=== PATIENT | female | born 1965 | race Caucasian/White ===

== ENCOUNTER 2019-04-25 12:57 | Emergency (ER) | payer OTHER, SELFPAY ==
[2019-04-25 12:59] VITALS: BP 157/103; PULSE 99; RESP 16; TEMP 37.2; O2SAT 97
--- NOTE | 2019-04-25 13:04 | ED.FEMALEGU ---
HPI - Female Genitourinary General Chief complaint: Urogenital-Female Stated complaint: UTI SYMPTOMS Time Seen by Provider: 04/25/19 13:04 Source: patient and RN notes reviewed History of Present Illness HPI Narrative: Patient is 53-year-old female that presents the urgent care with complaints of UTI symptoms since Tuesday. Patient states that she has had suprapubic pressure, burning with urination, chills. Patient denies any known fever, nausea, vomiting. Denies any known blood in the urine or lower back pain. Patient does not have chronic recurrent UTIs but has had them in the past. No other acute complaints. No acute distress noted. Patient read the plan of care. Related Data Allergies Allergy/AdvReac Type Severity Reaction Status Date / Time NKDA Allergy Mild Uncoded 02/17/10 18:12 Review of Systems Review of Systems: Narrative: CONSTITUTIONAL: Denies fever, chills, or sweats. EYES: Denies visual changes, redness, or discharge. ENT: Denies rhinorrhea, congestion, sore throat, or otalgia. CARDIOVASCULAR: Denies chest pain, palpitations, or edema. RESPIRATORY: Denies cough or dyspnea. GASTROINTESTINAL: Reports of suprapubic pressure GENITOURINARY: Reports of dysuria, urgency, frequency SKIN: Denies rash or itching. MUSCULOSKELETAL: Denies back pain, joint pain, or myalgia. NEUROLOGIC: Denies headache, numbness, or weakness. All other systems reviewed are negative, except as documented in HPI. PMFSH Comments At the time of my signature, I reviewed and agree with the nursing past medical, surgical, social, and family history. There is no relevant family history pertinent to the patient complaint. Exam Narrative: Exam Narrative: GENERAL: This is a well-nourished, well-developed patient, in no apparent distress. HEAD: normocephalic, atraumatic. EYES: PERRL. Sclera clear/white. Vision is grossly intact. EARS: External ears normal NOSE: External nose normal with no obvious nasal discharge THROAT: Mucous membranes moist NECK: Neck supple CARDIOVASCULAR: Regular rate and rhythm without murmurs, gallops, or rubs. RESPIRATORY: Clear to auscultation. Breath sounds equal bilaterally. No wheezes, rales, or rhonchi. GASTROINTESTINAL: Abdomen soft, mild suprapubic tenderness, nondistended. Bowel sounds are active. SKIN: warm, intact with no suspicious lesions or rash, good texture and turgor. NEURO: awake, alert, and oriented to person, place and time. There were no obvious focal neurologic abnormalities. EXTREMITIES: No clubbing, cyanosis, or edema. BACK: Negative bilateral CVA tenderness Course Vital Signs Vital signs: Vital Signs Temperature 98.9 F 04/25/19 12:59 Pulse Rate 99 04/25/19 12:59 Respiratory Rate 16 04/25/19 12:59 Blood Pressure 157/103 H 04/25/19 12:59 Pulse Oximetry 97 04/25/19 12:59 Temperature 98.9 F 04/25/19 12:59 Pulse Rate 99 04/25/19 12:59 Respiratory Rate 16 04/25/19 12:59 Blood Pressure 157/103 H 04/25/19 12:59 Pulse Oximetry 97 04/25/19 12:59 Reviewed?patient is informed that they may have pre-hypertension or hypertension based on a blood pressure reading in the department. I recommend the patient call the primary care provider listed on their discharge instructions or a physician of their choice this week to arrange follow-up for further evaluation of possible pre-hypertension or hypertension. MDM - Female Genitourinary MDM Narrative Medical decision making narrative: Reviewed lab results with the patient. She is aware that her urine analysis reveals positive UTI. There is also blood in the urine. Advised the patient to complete antibiotic regimen as prescribed. We will culture the urine and call if medication needs to be changed or stopped based on culture results. Make sure to eat and drink with the medication. Use Pyridium as needed for bladder spasms. Increase water intake and avoid sugary and caffeinated drinks. If you develop any increase in symptoms asso
== END 2019-04-25 13:35 | disposition home or self-care (01) ==
PROVIDERS: Emergency Provider Nurse Practitioner Family; PCP Internal Medicine
DX: N39.0 Urinary tract infection, site not specified (principal)
CPT/HCPCS: 81003; 87077; 87086; 87088; 87186; 99203; G0463

== ENCOUNTER 2021-07-18 14:14 | Emergency (ER) | payer OTHER, SELFPAY ==
[2021-07-18 14:25] VITALS: BP 163/84; PULSE 78; RESP 20; TEMP 36.8; O2SAT 98
--- NOTE | 2021-07-18 15:20 | ED.FEMALEGU ---
HPI - Female Genitourinary General Chief complaint: Urogenital-Female Stated complaint: Urinary Problem Time Seen by Provider: 07/18/21 14:50 Source: patient, RN notes reviewed and old records reviewed Mode of arrival: ambulatory Limitations: no limitations History of Present Illness HPI Narrative: 56-year-old female presents to [facility] with complaints of some urinary pressure yesterday and slight burning. Patient started Macrobid on July 05 for urinary tract infection and completed all doses of medication. Patient states that her symptoms improved after being treated before but never felt went away completely. Patient denies any fevers,chills or sweats, denies any nausea or vomiting or any back pain.Patient denies any visible blood in her urine. MD elicited complaint: dysuria Onset (ago): day(s) (2) Location of symptoms: perineum (pressure) Related Data Home Medications Medication Instructions Recorded Confirmed amlodipine 07/18/21 losartan-hydrochlorothiazide tablet 07/18/21 07/18/21 semaglutide [Rybelsus] mg PO 07/18/21 Allergies Allergy/AdvReac Type Severity Reaction Status Date / Time No Known Allergies Allergy Verified 07/18/21 14:30 Review of Systems Review of Systems: CONSTITUTIONAL: Denies fever, chills, or sweats. EYES: Denies visual changes, redness, or discharge. ENT: Denies rhinorrhea, congestion, sore throat, or otalgia. CARDIOVASCULAR: Denies chest pain, palpitations, or edema. RESPIRATORY: Denies cough or dyspnea. GASTROINTESTINAL: Denies abdominal pain, nausea, vomiting, or diarrhea. GENITOURINARY: Positive dysuria no hematuria. SKIN: Denies rash or itching. MUSCULOSKELETAL: Denies back pain, joint pain, or myalgia. NEUROLOGIC: Denies headache, numbness, or weakness. PSYCHIATRIC: Denies anxiety or depression. All systems reviewed & are unremarkable except as noted in HPI and below PMFSH Past Medical History Medical History (Updated 07/19/21 @ 23:00 by Miladys Curry NP) Diabetes Hypertension Surgical History Surgical History (Updated 07/19/21 @ 23:01 by Miladys Curry NP) History of hysterectomy Social History Social History (Updated 07/19/21 @ 23:01 by Miladys Curry NP) Smoking status: Never smoker Alcohol intake: current Alcohol use details: rare Substance use type: does not use Living arrangements: with family Gender identity (if verbalized by the patient): Female Comments At time of signature, agree with nursing past medical, surgical, social and family history. There is no relevant family history pertinent to the presenting complaint Exam Narrative: GENERAL: Well-appearing, well-nourished, and in no acute distress. HEAD: Normocephalic, atraumatic. EYES: PERRLA and EOMI. ENT: Nares clear, no rhinorrhea or epistaxis. Mucous membranes moist.TM;s normal with good light reflex, throat pink with no lesions or exudates,no tonsil swelling NECK: Supple.no lymphadenopathy CHEST: Clear to auscultation. No respiratory distress. no cough or congestion SAO2 98% on room air HEART: Regular rate and rhythm. No murmur heard. Normal peripheral pulses. ABDOMEN: Soft, nontender to palpation, nondistended, normal active bowel sounds.reports some urinary pressure and frequency no CVA tenderness on examination. EXTREMITIES: Normal range of motion. No edema. SKIN: Warm, dry, no rash. NEURO: No focal deficits. Alert and oriented x3. Course Course Level of Care: Express Care Visit Vital Signs Vital signs: Vital Signs Temperature 36.8 C 07/18/21 14:25 Pulse Rate 78 07/18/21 14:25 Respiratory Rate 20 07/18/21 14:25 Blood Pressure 163/84 H 07/18/21 14:25 Pulse Oximetry 98 07/18/21 14:25 Temperature 36.8 C 07/18/21 14:25 Pulse Rate 78 07/18/21 14:25 Respiratory Rate 20 07/18/21 14:25 Blood Pressure 163/84 H 07/18/21 14:25 Pulse Oximetry 98 07/18/21 14:25 MDM - Female Genitourinary Differential Diagnosis Differential diagno
== END 2021-07-18 15:31 | disposition home or self-care (01) ==
PROVIDERS: Emergency Provider Registered Nurse; PCP Internal Medicine
DX: R30.0 Dysuria (principal); E11.9 Type 2 diabetes mellitus without complications; I10 Essential (primary) hypertension
CPT/HCPCS: 81003; 99213; G0463